=== PATIENT | female | born 1960 | race Caucasian/White ===

== ENCOUNTER 2021-07-26 14:29 | Day surgery (SDC) | payer OTHER ==
[2021-07-26] MEDS ORDERED: Marcaine Mpf 0.5% Vial 30 Ml IJ ONE (14:30)
[2021-07-26] MEDS ORDERED: Xylocaine 1% Vial 30 ML PF IJ ONE (14:30)
[2021-07-26] MEDS ORDERED: Depo-Medrol 40 MG/ML IM ONE (14:30)
--- NOTE | 2021-07-26 19:49 | XRAY ---
Indication: Bilateral hip injection. Intraoperative fluoroscopy provided for 29 seconds. 2 digital spot image submitted for interpretation demonstrates needle tip projecting lateral to the left and right femur necks. Small amount of contrast injected for both needle tip placement. Correlate with intraoperative findings/report.
--- NOTE | 2021-07-27 08:46 | XRAY ---
29 bilateral intra-articular hip injections.
== END 2021-07-26 17:19 | disposition home or self-care (01) ==
LOC: SDC-PAIN 14:29
PROVIDERS: ATTEND Psychiatry & Neurology Pain Medicine
DX: M16.0 Bilateral primary osteoarthritis of hip (principal); E11.9 Type 2 diabetes mellitus without complications; I10 Essential (primary) hypertension; Z79.899 Other long term (current) drug therapy
CPT/HCPCS: 20610; 73521; 77002; 82947; J1030; J2001; Q9966

== ENCOUNTER 2021-08-16 14:36 | Day surgery (SDC) | payer OTHER ==
[2021-08-16] MEDS ORDERED: Marcaine Mpf 0.5% Vial 30 Ml IJ ONE (14:37)
[2021-08-16] MEDS ORDERED: XYLOCAINE-MPF 1% 5ML SDV IJ ONE (14:37)
[2021-08-16] MEDS ORDERED: Depo-Medrol 40 MG/ML IM ONE (14:37)
--- NOTE | 2021-08-16 17:33 | XRAY ---
Indication: Left shoulder injection. Intraoperative fluoroscopy provided for 8 seconds. Single digital spot image submitted for interpretation demonstrates needle tip projecting over the left glenohumeral joint superiorly. Small amount of contrast injected for needle tip placement. Correlate with intraoperative findings/report.
--- NOTE | 2021-08-16 17:35 | XRAY ---
12 seconds of fluoroscopy was used in surgery for a right shoulder intra-articular injection.
--- NOTE | 2021-08-16 17:36 | XRAY ---
8seconds of fluoroscopy was used in surgery for a left shoulder intra-articular injection.
--- NOTE | 2021-08-16 17:36 | XRAY ---
Indication: Right shoulder injection. Intraoperative fluoroscopy provided for 12 seconds. Single digital spot image submitted for interpretation demonstrates needle tip projecting over the right glenohumeral joint superiorly. Small amount of contrast injected for needle tip placement. Correlate with intraoperative findings/report.
== END 2021-08-16 16:36 | disposition home or self-care (01) ==
LOC: SDC-PAIN 14:36
PROVIDERS: ATTEND Psychiatry & Neurology Pain Medicine
DX: M19.012 Primary osteoarthritis, left shoulder (principal); M19.011 Primary osteoarthritis, right shoulder; E11.9 Type 2 diabetes mellitus without complications; Z79.899 Other long term (current) drug therapy
CPT/HCPCS: 20610; 73030; 77002; 82947; J1030; Q9966

== ENCOUNTER 2021-12-27 13:17 | Day surgery (SDC) | payer OTHER ==
[2021-12-27] MEDS ORDERED: Xylocaine 1% Vial 30 ML PF IJ ONE (13:18)
[2021-12-27] MEDS ORDERED: Marcaine Mpf 0.5% Vial 30 Ml IJ ONE (13:18)
[2021-12-27] MEDS ORDERED: Depo-Medrol 40 MG/ML IM ONE (13:18)
--- NOTE | 2021-12-27 16:49 | XRAY ---
30 seconds fluoroscopy time in surgery for intra-articular injections of both hips.
--- NOTE | 2021-12-27 16:50 | XRAY ---
Indication: Bilateral hip injection. Intraoperative fluoroscopy provided for 30 seconds. 3 digital spot image submitted for interpretation demonstrates needle tip just lateral to the left and right femur neck. Small amount of contrast injected for both needle tip placement. Correlate with intraoperative findings/report.
== END 2021-12-27 15:50 | disposition home or self-care (01) ==
LOC: SDC-PAIN 13:17
PROVIDERS: ATTEND Psychiatry & Neurology Pain Medicine
DX: M16.0 Bilateral primary osteoarthritis of hip (principal); E11.9 Type 2 diabetes mellitus without complications; Z79.899 Other long term (current) drug therapy
CPT/HCPCS: 20610; 73521; 77002; 82947; J1030; J2001; Q9966

== ENCOUNTER 2022-01-17 15:09 | Day surgery (SDC) | payer OTHER ==
[2022-01-17] MEDS ORDERED: BUPIVACAINE 0.5% VIAL IJ ONE (15:10)
[2022-01-17] MEDS ORDERED: Depo-Medrol 40 MG/ML IM ONE (15:10)
[2022-01-17] MEDS ORDERED: Xylocaine 1% Vial 30 ML PF IJ ONE (15:10)
--- NOTE | 2022-01-17 19:28 | XRAY ---
Indication: Left shoulder injection. Intraoperative fluoroscopy provided for 14 seconds. Single digital spot image submitted for interpretation demonstrates needle tip projecting over the left glenohumeral joint superiorly. Small amount of contrast injected for needle tip placement. Correlate with intraoperative findings/report.
--- NOTE | 2022-01-17 19:28 | XRAY ---
Indication: Right shoulder injection. Intraoperative fluoroscopy provided for 14 seconds. Single digital spot image submitted for interpretation demonstrates needle tip projecting over the right glenohumeral joint superiorly. Small amount of contrast injected for needle tip placement. Correlate with intraoperative findings/report.
--- NOTE | 2022-01-18 09:42 | XRAY ---
14 seconds of fluoroscopy was used in surgery for a left intra-articular shoulder injection.
--- NOTE | 2022-01-18 09:43 | XRAY ---
14 seconds of fluoroscopy was used in surgery for a right intra-articular shoulder injection.
== END 2022-01-17 17:05 | disposition home or self-care (01) ==
LOC: SDC-PAIN 15:09
PROVIDERS: ATTEND Psychiatry & Neurology Pain Medicine
DX: M19.012 Primary osteoarthritis, left shoulder (principal); M19.011 Primary osteoarthritis, right shoulder; E11.9 Type 2 diabetes mellitus without complications; Z79.899 Other long term (current) drug therapy
CPT/HCPCS: 20610; 73030; 77002; 82947; J1030; J2001; Q9966

== ENCOUNTER 2022-05-30 14:57 | Day surgery (SDC) | payer OTHER ==
[2022-05-30] MEDS ORDERED: Depo-Medrol 40 MG/ML IM ONE (14:58)
[2022-05-30] MEDS ORDERED: BUPIVACAINE 0.5% VIAL IJ ONE (14:58)
[2022-05-30] MEDS ORDERED: LIDOCAINE HCL 1% 50 MG/5 ML VL PF IJ ONE (14:58)
--- NOTE | 2022-05-30 17:09 | XRAY ---
Indication: Left shoulder and subacromial bursa injection Intraoperative fluoroscopy provided for 33 seconds. 2 digital spot images submitted for interpretation demonstrates needle tip projecting over the left glenohumeral joint superiorly. Second needle tip subacromial. Small amount of contrast injected for both needle tip placement. Correlate with intraoperative findings/report.
--- NOTE | 2022-05-30 17:10 | XRAY ---
Indication: Right shoulder and subacromial bursa injection Intraoperative fluoroscopy provided for 22 seconds. 2 digital spot images submitted for interpretation demonstrates needle tip projecting over the right glenohumeral joint superiorly. Second needle tip subacromial. Small amount of contrast injected for both needle tip placement. Correlate with intraoperative findings/report.
--- NOTE | 2022-05-31 08:45 | XRAY ---
22 seconds of fluoroscopy was used in surgery for a right intra-articular shoulder and subacromial bursa injection.
--- NOTE | 2022-05-31 08:45 | XRAY ---
33 seconds of fluoroscopy was used in surgery for a left intra-articular shoulder and subacromial bursa injection.
== END 2022-05-30 16:50 | disposition home or self-care (01) ==
LOC: SDC-PAIN 14:57
PROVIDERS: ATTEND Psychiatry & Neurology Pain Medicine
DX: M19.012 Primary osteoarthritis, left shoulder (principal); M19.011 Primary osteoarthritis, right shoulder; E11.9 Type 2 diabetes mellitus without complications; Z79.899 Other long term (current) drug therapy
CPT/HCPCS: 20610; 73030; 77002; 82947; J1030; J2001; Q9966

== ENCOUNTER 2022-07-04 14:42 | Day surgery (SDC) | payer OTHER ==
[2022-07-04] MEDS ORDERED: LIDOCAINE HCL 1% 50 MG/5 ML VL PF IJ ONE (14:43)
[2022-07-04] MEDS ORDERED: BUPIVACAINE 0.5% VIAL IJ ONE (14:43)
[2022-07-04] MEDS ORDERED: Depo-Medrol 40 MG/ML IM ONE (14:43)
--- NOTE | 2022-07-04 18:45 | XRAY ---
Indication: Bilateral hip injection. Intraoperative fluoroscopy provided for 31 seconds. 2 digital spot image submitted for interpretation demonstrates needle tip projecting lateral to the left and right femur necks. Small amount of contrast injected for both needle tip placement. Correlate with intraoperative findings/report.
--- NOTE | 2022-07-04 18:48 | XRAY ---
31 seconds of fluoroscopy was used in surgery for a bilateral intra-articular hip injection.
== END 2022-07-04 17:25 | disposition home or self-care (01) ==
LOC: SDC-PAIN 14:42
PROVIDERS: ATTEND Psychiatry & Neurology Pain Medicine
DX: M16.0 Bilateral primary osteoarthritis of hip (principal); E11.9 Type 2 diabetes mellitus without complications; Z79.899 Other long term (current) drug therapy
CPT/HCPCS: 20610; 73521; 77002; 82947; J1030; J2001; Q9966

== ENCOUNTER 2022-08-22 14:52 | Day surgery (SDC) | payer OTHER ==
[2022-08-22] MEDS ORDERED: Depo-Medrol 40 MG/ML IM ONE (14:53)
[2022-08-22] MEDS ORDERED: LIDOCAINE HCL 1% 50 MG/5 ML VL PF IJ ONE (14:53)
[2022-08-22] MEDS ORDERED: Sodium Chloride 0.9(Preservative Free) 10 ML IJ ONE (14:53)
[2022-08-22] MEDS ORDERED: Lactated Ringers 1,000 ML IV ONE (16:57)
--- NOTE | 2022-08-22 18:56 | XRAY ---
Indication: Caudal MARY. Intraoperative fluoroscopy provided for 24 seconds. 2 digital spot image submitted for interpretation demonstrates caudal needle tip projecting mid sacrum. Small amount of contrast injected for needle tip placement. Correlate with intraoperative findings/report.
--- NOTE | 2022-08-23 09:49 | XRAY ---
24 seconds of fluoroscopy was used in surgery for a caudal MARY.
== END 2022-08-22 17:04 | disposition home or self-care (01) ==
LOC: SDC-PAIN 14:52
PROVIDERS: ATTEND Psychiatry & Neurology Pain Medicine
DX: M54.16 Radiculopathy, lumbar region (principal); E11.9 Type 2 diabetes mellitus without complications; Z79.899 Other long term (current) drug therapy
CPT/HCPCS: 62323; 72220; 77003; 82947; J1030; J2001; Q9966

== ENCOUNTER 2022-12-12 14:47 | Day surgery (SDC) | payer OTHER ==
[2022-12-12] MEDS ORDERED: LIDOCAINE HCL 1% 50 MG/5 ML VL PF IJ ONE (14:48)
[2022-12-12] MEDS ORDERED: BUPIVACAINE 0.5% VIAL IJ ONE (14:48)
[2022-12-12] MEDS ORDERED: Depo-Medrol 40 MG/ML IM ONE (14:48)
--- NOTE | 2022-12-12 20:17 | XRAY ---
Indication: Bilateral hip injection. Intraoperative fluoroscopy provided for 34 seconds. 3 digital spot images submitted for interpretation demonstrates needle tip projecting lateral to the left and right femur necks. Small amount of contrast injected for both needle tip placement. Correlate with intraoperative findings/report.
--- NOTE | 2022-12-12 20:19 | XRAY ---
34 seconds of fluoroscopy was used in surgery for bilateral hips intra-articular injections.
== END 2022-12-12 18:10 | disposition home or self-care (01) ==
LOC: SDC-PAIN 14:47
PROVIDERS: ATTEND Psychiatry & Neurology Pain Medicine
DX: M16.0 Bilateral primary osteoarthritis of hip (principal); E11.9 Type 2 diabetes mellitus without complications; Z79.899 Other long term (current) drug therapy
CPT/HCPCS: 20610; 73521; 77002; 82947; J1030; J2001; Q9966

== ENCOUNTER 2023-01-23 16:08 | Day surgery (SDC) | payer OTHER ==
[2023-01-23] MEDS ORDERED: XYLOCAINE-MPF 1% 5ML SDV IJ ONE (16:09)
[2023-01-23] MEDS ORDERED: Depo-Medrol 40 MG/ML IM ONE (16:09)
[2023-01-23] MEDS ORDERED: BUPIVACAINE 0.5% VIAL IJ ONE (16:09)
--- NOTE | 2023-01-23 20:59 | XRAY ---
Indication: Right shoulder and subacromial bursa injection. Intraoperative fluoroscopy provided for 12 seconds. 3 digital spot images submitted for interpretation demonstrates needle tip projecting over right glenohumeral joint superiorly. Second needle tip subacromial. Small amount of contrast injected for both needle tip placement. Correlate with intraoperative findings/report.
--- NOTE | 2023-01-23 21:00 | XRAY ---
Indication: Left shoulder and subacromial bursa injection. Intraoperative fluoroscopy provided for 14 seconds. 3 digital spot images submitted for interpretation demonstrates needle tip projecting over left glenohumeral joint superiorly. Second needle tip subacromial. Small amount of contrast injected for both needle tip placement. Correlate with intraoperative findings/report.
--- NOTE | 2023-01-24 08:46 | XRAY ---
12 seconds of fluoroscopy was used in surgery for a right intra-articular shoulder and subacromial bursa injection.
--- NOTE | 2023-01-24 08:46 | XRAY ---
14 seconds of fluoroscopy was used in surgery for a left intra-articular shoulder and subacromial bursa injection.
== END 2023-01-23 19:11 | disposition home or self-care (01) ==
LOC: SDC-PAIN 16:08
PROVIDERS: ATTEND Psychiatry & Neurology Pain Medicine
DX: M19.012 Primary osteoarthritis, left shoulder (principal); M19.011 Primary osteoarthritis, right shoulder; M75.52 Bursitis of left shoulder; M75.51 Bursitis of right shoulder; E11.9 Type 2 diabetes mellitus without complications
CPT/HCPCS: 20610; 73030; 77002; 82947; J1030; Q9966

== ENCOUNTER 2023-05-01 16:07 | Day surgery (SDC) | payer OTHER ==
[2023-05-01] MEDS ORDERED: Sodium Chloride 0.9(Preservative Free) 10 ML IJ ONE (16:08)
[2023-05-01] MEDS ORDERED: XYLOCAINE-MPF 1% 5ML SDV IJ ONE (16:08)
[2023-05-01] MEDS ORDERED: Decadron 4 MG INJ IV ONE (16:08)
[2023-05-01] MEDS ORDERED: Lactated Ringers 1,000 ML IV ONE (17:04)
--- NOTE | 2023-05-01 20:14 | XRAY ---
Indication: Right L4-S1 transforaminal MARY. Intraoperative fluoroscopy provided for 43 seconds. 8 digital spot image submitted for interpretation demonstrates posterior needle tips projecting over the expected right L4 and L5 nerve roots. Small amount of contrast injected for needle tip placement. Correlate with intraoperative findings/report.
--- NOTE | 2023-05-02 12:03 | XRAY ---
43 seconds of fluoroscopy was used in surgery for a right L4-S1 transforaminal MARY.
== END 2023-05-01 18:25 | disposition home or self-care (01) ==
LOC: SDC-PAIN 16:07
PROVIDERS: ATTEND Psychiatry & Neurology Pain Medicine
DX: M54.16 Radiculopathy, lumbar region (principal); E11.9 Type 2 diabetes mellitus without complications
CPT/HCPCS: 64483; 64484; 72100; 77003; 82947; J1100; Q9966

== ENCOUNTER 2023-09-25 14:25 | Day surgery (SDC) | payer OTHER ==
[2023-09-25] MEDS ORDERED: BUPIVACAINE 0.5% VIAL IJ ONE (14:26)
[2023-09-25] MEDS ORDERED: Depo-Medrol 40 MG/ML IM ONE (14:26)
[2023-09-25] MEDS ORDERED: LIDOCAINE HCL 1% 50 MG/5 ML VL PF IJ ONE (14:26)
--- NOTE | 2023-09-25 16:38 | XRAY ---
Indication: Bilateral hip injection. Intraoperative fluoroscopy provided for 24 seconds. 2 digital spot images submitted for interpretation demonstrates needle tips projecting lateral to left and right femur necks. Small amount of contrast injected for needle tip placement. Correlate with intraoperative findings/report.
--- NOTE | 2023-09-26 09:49 | XRAY ---
24 seconds of fluoroscopy was used in surgery for a bilateral intra-articular hip injection.
== END 2023-09-25 16:15 | disposition home or self-care (01) ==
LOC: SDC-PAIN 14:25
PROVIDERS: ATTEND Psychiatry & Neurology Pain Medicine
DX: M16.0 Bilateral primary osteoarthritis of hip (principal); E11.9 Type 2 diabetes mellitus without complications
CPT/HCPCS: 20610; 73521; 77002; 82947; J2001; Q9966

== ENCOUNTER 2023-11-06 14:59 | Day surgery (SDC) | payer OTHER ==
[2023-11-06] MEDS ORDERED: LIDOCAINE HCL 1% 50 MG/5 ML VL PF IJ ONE (15:00)
[2023-11-06] MEDS ORDERED: Sodium Chloride 0.9(Preservative Free) 10 ML IJ ONE (15:00)
[2023-11-06] MEDS ORDERED: Depo-Medrol 40 MG/ML IM ONE (15:00)
[2023-11-06] MEDS ORDERED: Lactated Ringers 1,000 ML IV ONE (17:50)
--- NOTE | 2023-11-06 18:08 | XRAY ---
Indication: Caudal MARY. Intraoperative fluoroscopy provided for 35 seconds. 2 digital spot images submitted for interpretation demonstrates caudal needle tip projecting mid sacrum. Small amount of contrast injected for needle tip placement. Correlate with intraoperative findings/report.
--- NOTE | 2023-11-06 18:11 | XRAY ---
35 seconds of fluoroscopy used in surgery for a caudal MARY.
== END 2023-11-06 16:55 | disposition home or self-care (01) ==
LOC: SDC-PAIN 14:59
PROVIDERS: ATTEND Psychiatry & Neurology Pain Medicine
DX: M54.16 Radiculopathy, lumbar region (principal); E11.9 Type 2 diabetes mellitus without complications
CPT/HCPCS: 62323; 72220; 77003; 82947; J2001; Q9966